=== PATIENT | male | born 1995 | race Hispanic/Latino ===

== ENCOUNTER 2021-01-16 09:12 | Outpatient (CLI) | payer BC | END 2021-01-16 09:13 | disposition home or self-care (01) | LOC: CSHMRI 09:12 | PROVIDERS: ATTEND Specialist | DX: M54.14 Radiculopathy, thoracic region (principal); M51.04 Intervertebral disc disorders with myelopathy, thoracic region | CPT/HCPCS: 72146 ==

== ENCOUNTER 2021-11-07 09:14 | Outpatient (CLI) | payer BC | END 2021-11-07 09:15 | disposition home or self-care (01) | LOC: CSHCT 09:14 | PROVIDERS: ATTEND Surgery | DX: R10.31 Right lower quadrant pain (principal); M79.81 Nontraumatic hematoma of soft tissue | CPT/HCPCS: 72192 ==

== ENCOUNTER 2022-12-08 10:36 | Day surgery (SDC) | payer BC ==
[2022-12-05 12:57] VITALS: BMI 35.2
[2022-12-08] MEDS ORDERED: fentaNYL 50 mcg/mL 1 mL Vial ONE (13:52)
[2022-12-08] MEDS ORDERED: PROPOFOL 20 ML ONE ×3 (13:52→14:19)
[2022-12-08] MEDS ORDERED: Midazolam HCl 2 mg/2 ml Vial ONE (13:52)
== END 2022-12-08 15:00 | disposition home or self-care (01) ==
LOC: CSHSDC 10:36
PROVIDERS: ATTEND Internal Medicine Gastroenterology
PROC: 0DB78ZX Excision of Stomach, Pylorus, Via Natural or Artificial Opening Endoscopic, Diagnostic (ICD-10-PCS; principal; 2022-12-08)
PROC: 0DJD8ZZ Inspection of Lower Intestinal Tract, Via Natural or Artificial Opening Endoscopic (ICD-10-PCS; principal; 2022-12-08)
DX: K21.00 Gastro-esophageal reflux disease with esophagitis, without bleeding (principal); K22.10 Ulcer of esophagus without bleeding; K26.9 Duodenal ulcer, unspecified as acute or chronic, without hemorrhage or perforation; M47.9 Spondylosis, unspecified; K64.9 Unspecified hemorrhoids; F41.9 Anxiety disorder, unspecified; G47.30 Sleep apnea, unspecified; F90.9 Attention-deficit hyperactivity disorder, unspecified type; G43.909 Migraine, unspecified, not intractable, without status migrainosus; N35.811 Other urethral stricture, male, meatal; Z91.018 Allergy to other foods
CPT/HCPCS: 88305; J2250; J2704; J3010